=== PATIENT | female | born 1995 | race Caucasian/White ===

== ENCOUNTER 2018-12-01 11:42 | Emergency (ER) | payer MEDICAID ==
[2018-12-01 12:21] LABS: HCG,QUALITATIVE URINE NEGATIVE (NEGATIVE)
[2018-12-01 12:32] LABS: SQUAMOUS EPITHIAL 10 /hpf (0-5); URINE BACTERIA RARE (<OCC); URINE BILIRUBIN NEGATIVE (NEGATIVE); URINE BLOOD NEGATIVE (NEGATIVE); URINE CLARITY Hazy (Clear); URINE COLOR Straw (YELLOW); URINE GLUCOSE (UA) NORMAL (Normal); URINE LEUKOCYTE ESTERASE NEG Leu/uL (Negative); URINE PROTEIN NEGATIVE (NEGATIVE); URINE UROBILINOGEN NORMAL mg/dL (0.2-1.0)
[2018-12-01] MEDS ORDERED: Sodium Chloride 0.9% 1,000 ML IV STA (13:58)
[2018-12-01] MEDS ORDERED: Iohexol 240 (50 ml) PO STA (13:58)
[2018-12-01] MEDS ORDERED: Sodium Chloride 0.9% 1,000 ML ONE (14:10)
[2018-12-01] MEDS ORDERED: Iohexol 240 (50 ml) ONE (14:10)
[2018-12-01 14:17] LABS: BASO % 0.5 % (0.0-2.0); EOS # 0.1 K/uL (0.0-0.7); EOS % 0.8 % (0.0-4.0); HEMOGLOBIN 12.2 g/dL (11.0-16.0); LYMPH # 2.2 K/uL (1.0-4.3); MEAN CELL VOLUME 86.2 fL (81.0-99.0); MEAN CORPUSCULAR HGB CONC 33.7 g/dL (33.0-37.0); MEAN PLATELET VOLUME 9.2 fL (7.2-11.7); MONO # 0.4 K/uL (0.0-0.8); MONO % 6.9 % (0.0-10.0); NEUT # 3.6 K/uL (1.8-7.0); NEUT % 56.8 % (50.0-75.0); NRBC % 0.1 % (0.0-2.0); RBC 4.21 Mil/uL (3.80-5.20); RED CELL DISTRIBUTION WIDTH 13.4 % (11.5-14.5); WHITE BLOOD COUNT 6.3 K/uL (4.8-10.8)
[2018-12-01 14:50] LABS: ALB/GLOB RATIO 1.6 (1.0-2.1); ALBUMIN 4.8 g/dL (3.5-5.0); AST/SGOT 22 U/L (14-36); BLOOD UREA NITROGEN 8 mg/dL (7-17); CALCIUM 9.7 mg/dl (8.6-10.4); GFR NON-AFRICAN AMERICAN > 60; LIPASE 84 U/L (23-300)
[2018-12-01 14:57] LABS: ALT/SGPT < 6 U/L (9-52)
--- NOTE | 2018-12-01 15:55 | C.PDOC ---
History Of Present Illness 23 y/o female presents to the ER complaining of RLQ abdominal pain which began 5 days ago. Patient states that she was in [place] last year. At the time, she was told she has "appendicitis" and she was not treated "surgically." Patient denies having fever,chills, nausea, vomiting, dysuria, and hematuria. Time Seen by Provider: 12/01/18 12:46 Chief Complaint (Nursing): Abdominal Pain History Per: Patient History/Exam Limitations: no limitations Onset/Duration Of Symptoms: Days Current Symptoms Are (Timing): Still Present Severity: Moderate Past Medical History Reviewed: Historical Data, Nursing Documentation, Vital Signs Vital Signs: Last Vital Signs Temp 98.4 F 12/01/18 11:56 Pulse 85 12/01/18 11:56 Resp 18 12/01/18 11:56 BP 128/80 12/01/18 11:56 Pulse Ox 99 12/01/18 11:56 - Medical History PMH: No Chronic Diseases Surgical History: Tonsillectomy Family History: States: No Known Family Hx - Social History Hx Alcohol Use: No Hx Substance Use: No - Immunization History Hx Tetanus Toxoid Vaccination: No Hx Influenza Vaccination: No Hx Pneumococcal Vaccination: No Review Of Systems Except As Marked, All Systems Reviewed And Found Negative. Constitutional: Negative for: Fever, Chills Gastrointestinal: Positive for: Abdominal Pain. Negative for: Nausea, Vomiting Genitourinary: Negative for: Dysuria, Hematuria Physical Exam - Physical Exam Appears: Non-toxic, No Acute Distress Skin: Normal Color, Warm, Dry Head: Atraumatic, Normacephalic Eye(s): bilateral: Normal Inspection Nose: Normal Oral Mucosa: Moist Neck: Supple Chest: Symmetrical Cardiovascular: Rhythm Regular Respiratory: Normal Breath Sounds, No Rales, No Rhonchi, No Wheezing Gastrointestinal/Abdominal: Soft, Tenderness (RLQ tenderness), No Guarding, No Rebound Neurological/Psych: Oriented x3, Normal Speech ED Course And Treatment - Laboratory Results Result Diagrams: 12/01/18 14:03 12/01/18 14:03 Lab Results: Total Bilirubin 0.5 mg/dL (0.2-1.3) 12/01/18 14:03 AST 22 U/L (14-36) 12/01/18 14:03 ALT < 6 U/L (9-52) L 12/01/18 14:03 Alkaline Phosphatase 40 U/L (38-126) 12/01/18 14:03 Total Protein 7.7 g/dL (6.3-8.3) 12/01/18 14:03 Albumin 4.8 g/dL (3.5-5.0) 12/01/18 14:03 Globulin 2.9 gm/dL (2.2-3.9) 12/01/18 14:03 Albumin/Globulin Ratio 1.6 (1.0-2.1) 12/01/18 14:03 Lipase 84 U/L (23-300) 12/01/18 14:03 Urine Color Straw (YELLOW) 12/01/18 12:10 Urine Clarity Hazy (Clear) 12/01/18 12:10 Urine pH 6.0 (5.0-8.0) 12/01/18 12:10 Ur Specific [place] 1.003 (1.003-1.030) 12/01/18 12:10 Urine Protein Negative mg/dL (NEGATIVE) 12/01/18 12:10 Urine Glucose (UA) Normal mg/dL (Normal) 12/01/18 12:10 Urine Ketones Negative mg/dL (NEGATIVE) 12/01/18 12:10 Urine Blood Negative (NEGATIVE) 12/01/18 12:10 Urine Nitrate Negative (NEGATIVE) 12/01/18 12:10 Urine Bilirubin Negative (NEGATIVE) 12/01/18 12:10 Urine Urobilinogen Normal mg/dL (0.2-1.0) 12/01/18 12:10 Ur Leukocyte Esterase Neg Lolly/uL (Negative) 12/01/18 12:10 Urine WBC (Auto) 1 /hpf (0-5) 12/01/18 12:10 Urine RBC (Auto) 1 /hpf (0-3) 12/01/18 12:10 Ur Squamous Epith Cells 10 /hpf (0-5) H 12/01/18 12:10 Urine Bacteria Rare (<OCC) 12/01/18 12:10 Urine HCG, Qual Negative (NEGATIVE) 12/01/18 12:10 Urine HCG, Qual Negative (NEGATIVE) 12/01/18 12:10 O2 Sat by Pulse Oximetry: 99 (RA) Pulse Ox Interpretation: Normal - CT Scan/US CT-Abd & Pelv. Other Rad Studies (CT/US): Read By Radiologist, Radiology Report Reviewed CT/US Interpretation: Date of service: 12/01/2018. PROCEDURE: CT Abdomen and Pelvis with contrast. HISTORY: RLQ pain. COMPARISON: None available. TECHNIQUE: CT scan of the abdomen and pelvis was performed after administration of intravenous contrast. Oral contrast was administered. Coronal and sagittal reformatted images were obtained. Contrast dose: 100 mL Visipaque 320. Radiation dose: Total exam DLP = 297.24 mGy-cm. This CT exam was performed usi ng one or more of the following dose reduction techniques: Automated exposure control, adjustment of the mA and/or kV according to patient size, and/or use of iterative reconstruction technique. FINDINGS: LOWER THORAX: The visualized lungs are clear. LIVER: Mild hepatomegaly. Diffuse fatty liver. Homogeneous enhancement. No gross lesion or ductal dilatation. GALLBLADDER AND BILE DUCTS: Well distended. No calcified gallstones, wall thickening or pericholecystic fluid. PANCREAS: Normal in size with homogeneous enhancement. No gross lesion or ductal dilatation. SPLEEN: Mild splenomegaly. Normal homogeneous enhancement. ADRENALS: No discrete nodule. KIDNEYS AND URETERS: Normal in size with homogeneous enhancement. No hydronephrosis. No solid mass. VASCULATURE: No aortic aneurysm. There are no aortic atherosclerotic calcifications or mural plaque present. BOWEL: The small bowel loops are normal in caliber. The colon is grossly normal in appearance. No bowel wall thickening or obstruction. APPENDIX: Normal appendix. PERITONEUM: No free fluid. No free air. LYMPH NODES: No enlarged lymph nodes. BLADDER: Well distended and normal in appearance. REPRODUCTIVE: The uterus is normal in size. BONES: No acute fracture. Within normal limits for the patient's age. Subcentimeter area of sclerosis in the medial left femoral head are statistically most compatible with a bone island. OTHER FINDINGS: None. IMPRESSION: No acute abdominal or pelvic abnormality. Specifically, no CT evidence for acute appendicitis. Mild hepatosplenomegaly and fatty liver. Progress Note: Labs,UA, and CT-Abd & Pelv. ordered. Patient treated with IV Fluids. On re-evaluation patient feels better and is stable to be d/c home with PMD follow up. GI outpatient consultation is recommended. Disposition - Disposition Disposition: HOME/ ROUTINE Disposition Time: 18:15 Condition: STABLE Additional Instructions: Follow up with PMD within 1-2 days. Return to ED if feel worse. Prescriptions: Dicyclomine [Bentyl] 20 mg PO TID #30 tab Instructions: Acute Abdomen (Belly Pain) Forms: [employer] (Qatari) - Clinical Impression Clinical Impression: Abdominal pain - PA / INFECTION CONTROL MANAGER / Resident Statement MD/DO has reviewed & agrees with the documentation as recorded. - Scribe Statement The provider has reviewed the documentation as recorded by the Reginaibe Lou Jimenez Provider Attestation All medical record entries made by the Reginaibsascha were at my direction and personally dictated by me. I have reviewed the chart and agree that the record accurately reflects my personal performance of the history, physical exam, medical decision making, and the department course for this patient. I have also personally directed, reviewed, and agree with the discharge instructions and disposition.
[2018-12-01] MEDS ORDERED: Iodixanol 320 MG/ML 100 ML BOTTLE IV ONE (16:39)
--- NOTE | 2018-12-01 17:51 | CT ---
Date of service: 12/01/2018 PROCEDURE: CT Abdomen and Pelvis with contrast HISTORY: RLQ pain COMPARISON: None available. TECHNIQUE: CT scan of the abdomen and pelvis was performed after administration of intravenous contrast. Oral contrast was administered. Coronal and sagittal reformatted images were obtained. Contrast dose: 100 mL Visipaque 320 Radiation dose: Total exam DLP = 297.24 mGy-cm. This CT exam was performed using one or more of the following dose reduction techniques: Automated exposure control, adjustment of the mA and/or kV according to patient size, and/or use of iterative reconstruction technique. FINDINGS: LOWER THORAX: The visualized lungs are clear. LIVER: Mild hepatomegaly. Diffuse fatty liver. Homogeneous enhancement. No gross lesion or ductal dilatation. GALLBLADDER AND BILE DUCTS: Well distended. No calcified gallstones, wall thickening or pericholecystic fluid. PANCREAS: Normal in size with homogeneous enhancement. No gross lesion or ductal dilatation. SPLEEN: Mild splenomegaly. Normal homogeneous enhancement. ADRENALS: No discrete nodule. KIDNEYS AND URETERS: Normal in size with homogeneous enhancement. No hydronephrosis. No solid mass. VASCULATURE: No aortic aneurysm. There are no aortic atherosclerotic calcifications or mural plaque present. BOWEL: The small bowel loops are normal in caliber. The colon is grossly normal in appearance. No bowel wall thickening or obstruction. APPENDIX: Normal appendix. PERITONEUM: No free fluid. No free air. LYMPH NODES: No enlarged lymph nodes. BLADDER: Well distended and normal in appearance. REPRODUCTIVE: The uterus is normal in size. BONES: No acute fracture. Within normal limits for the patient's age. Subcentimeter area of sclerosis in the medial left femoral head are statistically most compatible with a bone island. OTHER FINDINGS: None. IMPRESSION: No acute abdominal or pelvic abnormality. Specifically, no CT evidence for acute appendicitis. Mild hepatosplenomegaly and fatty liver.
[2018-12-01 18:30] VITALS: BP 115/73; PULSE 94; RESP 20; TEMP 98.6
[2018-12-01 19:18] VITALS: O2SAT 99
== END 2018-12-01 18:30 | disposition home or self-care (01) ==
LOC: C.ER 11:42
DX: R10.31 Right lower quadrant pain (principal)
CPT/HCPCS: 74177; 80053; 81001; 83690; 84703; 85025; 96360; 99285; J7030; Q9966; Q9967